=== PATIENT | female | born 1995 | race Caucasian/White ===

== ENCOUNTER 2017-07-22 08:43 | Outpatient (CLI) | payer OTHER ==
--- NOTE | 2017-07-22 12:12 | ULT ---
ULTRASOUND ABDOMEN: Date: 07/22/17 HISTORY: Right upper quadrant pain. FINDINGS: The liver, spleen, gallbladder, pancreas, kidneys, and visualized portions of the aorta and IVC appe ar normal. The common duct measures 1.0 mm in diameter. No free fluid is seen. IMPRESSION: Normal exam. POS: TOYH
== END 2017-07-22 08:44 | disposition home or self-care (01) ==
LOC: ULT 08:43
PROVIDERS: ATTEND Internal Medicine Gastroenterology
DX: R10.13 Epigastric pain (principal); G89.29 Other chronic pain
CPT/HCPCS: 76700